=== PATIENT | male | born 1985 | race African-American/Black ===

== ENCOUNTER 2018-11-09 07:38 | Emergency (ER) | payer SELFPAY ==
--- NOTE | 2018-11-09 08:08 | RAD ---
RADIOGRAPH CHEST 1 VIEW: DATE: 11/09/2018 HISTORY: 33-year-old male with acute chest pain. FINDINGS: The visualized lung reyes are clear. The cardiomediastinal silhouette and hilar shadows are normal. The lateral costophrenic angles are sharp. The osseous structures appear normal. There is no pneumothorax. IMPRESSION: Negative.
[2018-11-09 08:19] LABS: #Basophils 0.1 thou/uL (0.0-0.2); #Eosinphils 0.3 thou/uL (0.0-0.7); #Lymphocytes 2.1 thou/uL (1.20-3.40); #Monocytes 0.4 thou/uL (0.11-0.59); #Neutrophils 1.6 thou/uL (1.40-6.50); %Basophils 1.7 % (0.0-1.0); %Lymphocytes 46.6 % (21.0-51.0); %Monocytes 8.8 % (0.0-10.0); %Neutrophils 36.9 % (42.0-75.0); Mean Corpuscular HGB CONC 32.5 g/dL (32.0-36.0); Mean Corpuscular Hemoglobin 26.8 pg (27.0-31.0); Mean Corpuscular Volume 82.3 fL (78.0-98.0); Mean Platelet Volume 7.6 fL (7.4-10.4); Platelet Count 240 thou/uL (130-400); Red Blood Cell (RBC) Count 5.61 mill/uL (4.70-6.10); White Blood Cell (WBC) Count 4.4 thou/uL (4.8-10.8)
[2018-11-09 08:47] LABS: ALT (SGPT) 20 U/L (8-55); AST (SGOT) 17 U/L (5-34); Albumin 4.5 g/dL (3.5-5.0); Alkaline Phosphatase 83 U/L (40-150); Anion Gap 14 mmol/L (10-20); BUN (Urea Nitrogen) 14 mg/dL (8.9-20.6); Bilirubin, Total 0.9 mg/dL (0.2-1.2); CK (CPK) 139 U/L (30-200); Calc. Creatinine Clearance 0 mL/min (70-130); Calcium 9.7 mg/dL (7.8-10.44); Carbon Dioxide 24 mmol/L (22-29); Chloride 106 mmol/L (98-107); Estimated GFR-MDRD Greater than 90; Globulin 2.6 g/dL (2.4-3.5); Glucose 100 mg/dL (70-105); Lipase 20 U/L (8-78); Potassium 4.1 mmol/L (3.5-5.1); Protein, Total 7.1 g/dL (6.0-8.3); Sodium 140 mmol/L (136-145)
[2018-11-09 10:23] LABS: Troponin I Less than 0.010 ng/mL (< 0.028)
== END 2018-11-09 10:45 | disposition home or self-care (01) ==
LOC: ERS 07:38
DX: R07.9 Chest pain, unspecified (principal); I10 Essential (primary) hypertension; Z79.899 Other long term (current) drug therapy
CPT/HCPCS: 36415; 71045; 80053; 82550; 83690; 84484; 85025; 93005

== ENCOUNTER 2018-11-21 07:18 | Emergency (ER) | payer SELFPAY ==
[2018-11-21] MEDS ORDERED: Adacel (T-DAP) 0.5 ML SYRINGE ONE (07:32)
== END 2018-11-21 08:15 | disposition home or self-care (01) ==
LOC: ERS 07:18
DX: S91.331A Puncture wound without foreign body, right foot, initial encounter (principal); I10 Essential (primary) hypertension; J45.909 Unspecified asthma, uncomplicated; Z79.899 Other long term (current) drug therapy; Z23 Encounter for immunization; W21.31XA Struck by shoe cleats, initial encounter
CPT/HCPCS: 90471; 90715

== ENCOUNTER 2020-03-30 23:50 | Emergency (ER) | payer SELFPAY ==
[2020-03-31 00:53] LABS: #Basophils 0.1 thou/uL (0.0-0.2); #Eosinphils 0.4 thou/uL (0.0-0.7); #Lymphocytes 2.4 thou/uL (1.20-3.40); #Monocytes 0.4 thou/uL (0.11-0.59); #Neutrophils 3.9 thou/uL (1.40-6.50); %Basophils 0.9 % (0.0-1.0); %Eosinophils 5.2 % (0.0-10.0); %Lymphocytes 33.7 % (21.0-51.0); %Neutrophils 55.2 % (42.0-75.0); Hemoglobin 14.8 g/dL (14.0-18.0); Mean Corpuscular HGB CONC 35.1 g/dL (32.0-36.0); Mean Corpuscular Hemoglobin 28.6 pg (27.0-31.0); Mean Corpuscular Volume 81.5 fL (78.0-98.0); Mean Platelet Volume 7.9 fL (7.4-10.4); Platelet Count 236 thou/uL (130-400); RBC Distribution Width 11.8 % (11.5-14.5); Red Blood Cell (RBC) Count 5.17 mill/uL (4.70-6.10); White Blood Cell (WBC) Count 7.1 thou/uL (4.8-10.8)
--- NOTE | 2020-03-31 08:02 | RAD ---
XR Chest 1 View Portable HISTORY: Dyspnea, exacerbation of asthma COMPARISON: 11/09/2018 FINDINGS: The heart size is normal. The lungs are well expanded without focal areas of consolidation, pneumothorax or pleural effusions. IMPRESSION: No radiographic evidence of acute cardiopulmonary process.
== END 2020-03-31 01:17 | disposition home or self-care (01) ==
LOC: ERS 23:50
DX: J45.901 Unspecified asthma with (acute) exacerbation (principal); I10 Essential (primary) hypertension; Z79.51 Long term (current) use of inhaled steroids
CPT/HCPCS: 36415; 71045; 85025

== ENCOUNTER 2020-05-18 19:33 | Emergency (ER) | payer SELFPAY ==
[2020-05-18] MEDS ORDERED: methylPREDNISolone Sod Succ/PF 125 MG/2 ML VIAL ONE (21:01)
== END 2020-05-18 22:39 | disposition home or self-care (01) ==
LOC: ERS 19:33
DX: J45.901 Unspecified asthma with (acute) exacerbation (principal); I10 Essential (primary) hypertension; Z79.51 Long term (current) use of inhaled steroids
CPT/HCPCS: 96374; J2930; J7620

== ENCOUNTER 2021-02-14 00:41 | Emergency (ER) | payer SELFPAY ==
[2021-02-14] MEDS ORDERED: predniSONE 20 MG TAB ONE (01:44)
== END 2021-02-14 02:01 | disposition home or self-care (01) ==
LOC: ERS 00:41
DX: J45.901 Unspecified asthma with (acute) exacerbation (principal); I10 Essential (primary) hypertension
CPT/HCPCS: 99284; J7512

== ENCOUNTER 2021-04-10 22:15 | Emergency (ER) | payer SELFPAY ==
[2021-04-10] MEDS ORDERED: Dexamethasone 10 MG/ML VIAL ONE (22:43)
== END 2021-04-10 23:46 | disposition home or self-care (01) ==
LOC: ERS 22:15
DX: J45.901 Unspecified asthma with (acute) exacerbation (principal); I10 Essential (primary) hypertension
CPT/HCPCS: 94640; J1100; J7620